=== PATIENT | male | born 1980 | race Caucasian/White ===

== ENCOUNTER 2019-01-01 06:58 | Emergency (ER) | payer MEDICAID, OTHER ==
[~2019-01-01] VITALS: Ht 188 cm; Wt 72.6 kg
[2019-01-01 07:26] VITALS: BP 121/80
[2019-01-01] MEDS ORDERED: KETOROLAC TROMETH 60MG/2ML VIAL IM ONE (08:30)
== END 2019-01-01 09:48 | disposition home or self-care (01) ==
LOC: ER 07:02
DX: N13.2 Hydronephrosis with renal and ureteral calculous obstruction (principal); F17.210 Nicotine dependence, cigarettes, uncomplicated
CPT/HCPCS: 74176; 81002; 96372; 99284; J1885

== ENCOUNTER 2019-03-20 19:02 | Emergency (ER) | payer MEDICAID ==
[~2019-03-20] VITALS: Ht 182.9 cm; Wt 72.6 kg
[2019-03-20 19:20] VITALS: BP 136/98
== END 2019-03-20 21:22 | disposition left against medical advice (07) ==
LOC: ER 19:02
DX: Z02.83 Encounter for blood-alcohol and blood-drug test (principal); Z53.21 Procedure and treatment not carried out due to patient leaving prior to being seen by health care provider

== ENCOUNTER 2019-05-28 00:34 | Emergency (ER) | payer SELFPAY ==
[~2019-05-28] VITALS: Ht 188 cm; Wt 73.5 kg
[2019-05-28] MEDS ORDERED: ACETAMINOPHEN 325 MG TAB PO ONE (01:00)
[2019-05-28] MEDS ORDERED: SODIUM CHLORIDE 0.9% 1,000 ML IVB ONE (01:05)
[2019-05-28] MEDS ORDERED: HYDROmorphone HCL 2 MG/ML VL IV ONE (01:15)
[2019-05-28] MEDS ORDERED: ONDANSETRON HCL 4 MG/2 ML VIAL IV ONE (01:15)
[2019-05-28] MEDS ORDERED: IOHEXOL 300 MG/ML 100ML BOTTLE IJ ONE (01:17)
[2019-05-28 01:44] LABS: Basophils # (auto) 0 uL; Basophils % (auto) 0.4 % (0.0-2.0); Eosinophils # (auto) 0.1 uL; Eosinophils % (auto) 0.9 % (0.0-7.0); Hematocrit 43.3 % (41.0-53.0); Hemoglobin 14.8 g/dL (13.5-17.5); Lymphocytes % (auto) 10.2 % (10.0-50.0); Mean Corpuscular Hemoglobin 30.5 pg (28.0-32.0); Mean Corpuscular Hgb Conc. 34.1 g/dL (32.0-36.0); Mean Corpuscular Volume 89.6 fL (80.0-100.0); Monocytes # (auto) 1.5 uL; Monocytes % (auto) 15.3 % (0.0-12.0); Neutrophils # (auto) 7.1 uL; Neutrophils % (auto) 73.2 % (37.0-80.0); Nucleated Red Blood Cells % 0.2 %; Platelet Count (auto) 201 10^3/uL (140-450); Red Blood Cells 4.83 10^6/uL (4.5-5.90); Red Cell Distribution Width 13.1 % (11.8-14.3); White Blood Cell 9.6 10^3/uL (4.4-10.8)
[2019-05-28 02:09] LABS: Albumin 3.6 g/dL (3.4-5.0); BUN/Creatinine Ratio 8.2; Calcium 8.8 mg/dL (8.5-10.1); Potassium 3.2 mmol/L (3.5-5.1)
[2019-05-28 02:12] LABS: Bilirubin, Total 0.5 mg/dL (0.2-1.0); Total Protein 7.1 g/dL (6.4-8.2)
[2019-05-28 03:55] VITALS: BP 117/65
[2019-05-28] MEDS ORDERED: POTASSIUM EFFERVESENT TAB 25 MEQ PO ONE (04:00)
== END 2019-05-28 05:45 | disposition home or self-care (01) ==
LOC: ER 00:36
DX: S30.22XA Contusion of scrotum and testes, initial encounter (principal); S52.612A Displaced fracture of left ulna styloid process, initial encounter for closed fracture; S39.91XA Unspecified injury of abdomen, initial encounter; F17.210 Nicotine dependence, cigarettes, uncomplicated; V28.4XXA Motorcycle driver injured in noncollision transport accident in traffic accident, initial encounter; Y93.89 Activity, other specified; Y99.8 Other external cause status; Y92.410 Unspecified street and highway as the place of occurrence of the external cause
CPT/HCPCS: 36415; 73110; 74177; 76870; 80053; 82150; 83605; 83690; 83735; 85025; 87804; 96374; 96375; 99284; J1170; J2405; Q9967

== ENCOUNTER 2021-10-08 05:03 | Emergency (ER) | payer OTHER ==
[~2021-10-08] VITALS: Ht 190.5 cm; Wt 83.9 kg
[2021-10-08 05:03] VITALS: BP 130/68
[2021-10-08 06:41] LABS: Hematocrit 41.4 % (41.0-53.0); Hemoglobin 14.2 g/dL (13.5-17.5); Mean Corpuscular Hemoglobin 30.2 pg (28.0-32.0); Mean Corpuscular Hgb Conc. 34.2 g/dL (32.0-36.0); Mean Corpuscular Volume 88.3 fL (80.0-100.0); Red Blood Cells 4.69 10^6/uL (4.5-5.90); Red Cell Distribution Width 13.4 % (11.8-14.3); White Blood Cell 8.9 10^3/uL (4.4-10.8)
[2021-10-08 06:53] LABS: Band Neutrophils % (manual) 0; Basophils % (manual) 0 (0.0-2.0); Blast Cells 0; Eosinophils % (manual) 0 (0-7); Metamyelocytes % 0; Myelocytes % 0; Promyelocytes % 0; Reactive Lymphocytes 0
[2021-10-08 06:59] LABS: Potassium 4.1 mmol/L (3.5-5.1)
[2021-10-08 07:07] LABS: Albumin 3.7 g/dL (3.4-5.0); BUN/Creatinine Ratio 11.5; Bilirubin, Total 0.5 mg/dL (0.2-1.0); Calcium 8.8 mg/dL (8.5-10.1); Magnesium 2.5 mg/dL (1.6-2.6); Total Protein 7.2 g/dL (6.4-8.2)
[2021-10-08] MEDS ORDERED: ASPirin 325 MG TAB PO ONE (08:45)
[2021-10-08 09:15] LABS: Lymphocytes % (manual) 16 (10.0-50.0); Monocytes % (manual) 14 (0-12)
[2021-10-08] MEDS ORDERED: NITROGLYCERIN 0.4 MG SL TAB SL ONE (10:45)
== END 2021-10-08 09:05 | disposition left against medical advice (07) ==
LOC: ER 05:03
DX: R07.89 Other chest pain (principal); F15.10 Other stimulant abuse, uncomplicated; Z53.29 Procedure and treatment not carried out because of patient's decision for other reasons
CPT/HCPCS: 36415; 71045; 80053; 83735; 84484; 85007; 85027; 85379; 93005